=== PATIENT | male | born 1935 | race Caucasian/White ===

== ENCOUNTER 2017-05-29 14:47 | Emergency (ER) | payer OTHER ==
[~2017-05-29] VITALS: Ht 172.7 cm; Wt 66.0 kg
[2017-05-29 14:49] VITALS: BP 161/73; PULSE 85; RESP 18; TEMP 98.3; O2SAT 97
[2017-05-29 15:53] LABS: AUTOMATED NEUTROPHIL # 6.7 TH/MM3 (1.8-7.7); BASOPHIL % 0.4 % (0.0-2.0); EOSINOPHIL # 0.1 TH/MM3 (0-0.4); HEMATOCRIT 41.4 % (39.0-51.0); HEMOGLOBIN 14.1 GM/DL (13.0-17.0); LYMPH % 18.3 % (9.0-44.0); LYMPHOCYTE # 1.7 TH/MM3 (1.0-4.8); MEAN CORPUSCULAR HEMOGLOBIN 31.3 PG (27.0-34.0); MEAN PLATELET VOLUME 8.5 FL (7.0-11.0); MONO % 9.8 % (0.0-8.0); MONOCYTE # 0.9 TH/MM3 (0-0.9); NEUT % 70.5 % (16.0-70.0); PLATELET COUNT 419 TH/MM3 (150-450); RED CELL DISTRIBUTION WIDTH 12.8 % (11.6-17.2); WHITE BLOOD COUNT 9.5 TH/MM3 (4.0-11.0)
[2017-05-29 16:14] LABS: ALBUMIN 3.6 GM/DL (3.4-5.0); ALT (GPT) 18 U/L (12-78); AST (GOT) 15 U/L (15-37); BICARBONATE 26.1 MEQ/L (21.0-32.0); BLOOD UREA NITROGEN 26 MG/DL (7-18); CALCIUM 9.4 MG/DL (8.5-10.1); CHLORIDE 103 MEQ/L (98-107); CREATININE 1.27 MG/DL (0.60-1.30); GLOMERULAR FILTRATION RATE 55 ML/MIN (>89); GLUCOSE,RANDOM 105 MG/DL (74-106); SODIUM (NA) 139 MEQ/L (136-145)
[2017-05-29 16:17] LABS: ALKALINE PHOSPHATASE 102 U/L (45-117); TOTAL BILIRUBIN ADULT 0.7 MG/DL (0.2-1.0); TOTAL PROTEIN 8.5 GM/DL (6.4-8.2)
[2017-05-29] MEDS ORDERED: HYDR12.57 PO (16:56)
[2017-05-29] MEDS ORDERED: ATEN25TA PO (16:56)
[2017-05-29] MEDS ORDERED: ALLO100T PO (16:58)
--- NOTE | 2017-05-29 17:12 | PD ---
HPI Chief Complaint: [employer] Problem Time Seen by Provider: 16:28 Travel History International Travel<30 days: No Contact w/Intl Traveler<30days: No Traveled to known affect area: No History of Present Illness HPI 81-year-old male complains of drainage from the surgical wound on the abdomen. Patient has history of diverticulitis with bowel perforation. Patient status post bowel surgery with colostomy in [place] a month ago. Patient states that he has serosanguineous drainage from the surgical wound for the past 3 weeks. Patient denies any fever chills. Patient denies abdominal pain. Patient states that the ostomy has been draining well. Patient has appointment with surgeon tomorrow in [place]. PFSH Past Medical History Cardiovascular Problems: Yes Diverticulitis: Yes Hiatal Hernia: Yes Hypertension: Yes Past Surgical History Other Surgery: Yes (hernia sx, ostomy) Social History Alcohol Use: No Tobacco Use: No Substance Use: No Allergies-Medications (Allergen,Severity, Reaction): Coded Allergies: pollen extracts (Verified Adverse Reaction, Mild, Sneezing, 05/29/17) Reported Meds & Prescriptions Reported Meds & Active Scripts Active Doxycycline Hyclate 100 Mg Cap 100 Mg PO BID Cipro (Ciprofloxacin HCl) 500 Mg Tab 500 Mg PO BID Reported Allopurinol 100 Mg Tab 100 Mg PO DAILY Hydrochlorothiazide 12.5 Mg Cap 12.5 Mg PO DAILY Atenolol 25 Mg Tab 12.5 Mg PO DAILY Review of Systems General / Constitutional: No: Fever Eyes: No: Visual changes HENT: No: Headaches Cardiovascular: No: Chest Pain or Discomfort Respiratory: No: Shortness of Breath Gastrointestinal: No: Abdominal Pain Genitourinary: No: Dysuria Musculoskeletal: No: Pain Skin: No Rash Neurologic: No: Weakness Psychiatric: No: Depression Endocrine: No: Polydipsia Hematologic/Lymphatic: No: Easy Bruising Physical Exam Narrative GENERAL: Well-nourished, well-developed patient. SKIN: Focused skin assessment warm/dry. HEAD: Normocephalic. EYES: No scleral icterus. No injection or drainage. NECK: Supple, trachea midline. No JVD or lymphadenopathy. CARDIOVASCULAR: Regular rate and rhythm without murmurs, gallops, or rubs. RESPIRATORY: Breath sounds equal bilaterally. No accessory muscle use. GASTROINTESTINAL: Abdomen soft, non-tender, nondistended. MUSCULOSKELETAL: No cyanosis, or edema. BACK: Nontender without obvious deformity. No CVA tenderness. Examination of the surgical wound on the left side of the abdomen shows emanuel in place. The wound edges redness with pussy discharge. Ostomy in place and draining well. Data Data Last Documented VS Vital Signs Date Time Temp Pulse Resp B/P (MAP) Pulse Ox O2 Delivery O2 Flow Rate FiO2 05/29/17 14:49 98.3 85 18 161/73 (102) 97 Orders Orders Complete Blood Count With Diff (05/29/17 15:02) Comprehensive Metabolic Panel (05/29/17 15:02) Lactic Acid Sepsis Protocol (05/29/17 15:02) Blood Culture (05/29/17 15:02) Wound Culture And Gram Stain (05/29/17 17:00) Ciprofloxacin (Cipro) (05/29/17 17:15) Doxycycline (Vibramycin) (05/29/17 17:15) Ed Discharge Order (05/29/17 17:25) Labs Laboratory Tests Test 05/29/17 15:10 05/29/17 15:16 White Blood Count 9.5 TH/MM3 Red Blood Count 4.50 MIL/MM3 Hemoglobin 14.1 GM/DL Hematocrit 41.4 % Mean Corpuscular Volume 92.0 FL Mean Corpuscular Hemoglobin 31.3 PG Mean Corpuscular Hemoglobin Concent 34.0 % Red Cell Distribution Width 12.8 % Platelet Count 419 TH/MM3 Mean Platelet Volume 8.5 FL Neutrophils (%) (Auto) 70.5 % Lymphocytes (%) (Auto) 18.3 % Monocytes (%) (Auto) 9.8 % Eosinophils (%) (Auto) 1.0 % Basophils (%) (Auto) 0.4 % Neutrophils # (Auto) 6.7 TH/MM3 Lymphocytes # (Auto) 1.7 TH/MM3 Monocytes # (Auto) 0.9 TH/MM3 Eosinophils # (Auto) 0.1 TH/MM3 Basophils # (Auto) 0.0 TH/MM3 CBC Comment DIFF FINAL Differential Comment Blood Urea Nitrogen 26 MG/DL Creatinine 1.27 MG/DL Random Glucose 105 MG/DL Total Protein 8.5 GM/DL Albumin 3.6 GM/DL Calcium Level 9.4 MG/DL Alkaline Phosphatase 102 U/L Aspartate Amino Transf (AST/SGOT) 15 U/L Alanine Aminotransferase (ALT/SGPT) 18 U/L Total Bilirubin 0.7 MG/DL Sodium Level 139 MEQ/L Potassium Level 3.7 MEQ/L Chloride Level 103 MEQ/L Carbon Dioxide Level 26.1 MEQ/L Anion Gap 10 MEQ/L Estimat Glomerular Filtration Rate 55 ML/MIN Lactic Acid Level 1.2 mmol/L MDM Medical Decision Making Medical Screen Exam Complete: Yes Emergency Medical Condition: Yes Interpretation(s) CBC within normal limit. CMP within normal limit. Differential Diagnosis Differential diagnosis including cellulitis, abscess. Narrative Course 81-year-old male with surgical wound infection. Status post bowel surgery with colostomy in place. Wound culture obtained. Cipro 500 mg by mouth given. Doxycycline 100 mg by mouth given. Diagnosis Primary Impression: Surgical wound infection Qualified Codes: T81.4XXA - Infection following a procedure, initial encounter Patient Instructions: General Instructions Additional Instructions: Cipro and doxycycline as directed. Wound care daily. Follow-up with surgeon as scheduled in the a.m. Return if worse. Med/Other Pt SpecificInfo: Prescription(s) given Scripts Sulfamethoxazole-Trimethoprim (Bactrim DS) 800-160 Mg Tab 1 TAB PO BID for Infection, #20 TAB 0 Refills Prov: Wang Childs MD 05/29/17 Ciprofloxacin (Cipro) 500 Mg Tab 500 MG PO BID for Infection, #20 TAB 0 Refills Prov: Wang Childs MD 05/29/17 Disposition: 01 DISCHARGE HOME Condition: Stable Wang Childs MD May 29, 2017 17:12
[2017-05-29] MEDS ORDERED: DOXYCYCLINE HYCLATE 100 MG CAP PO ONE (17:15)
[2017-05-29] MEDS ORDERED: CIPROFLOXACIN 500 MG TAB PO ONE (17:15)
[2017-05-29] MEDS ORDERED: CIPR-9 PO (17:24)
[2017-05-29] MEDS ORDERED: DOXY100C PO (17:24)
[2017-05-29] MEDS ORDERED: BACT800T5 PO (17:44)
== END 2017-05-29 17:30 | disposition home or self-care (01) ==
LOC: NEPC 14:47
DX: T81.4XXA Infection following a procedure, initial encounter (principal); B96.20 Unspecified Escherichia coli [E. coli] as the cause of diseases classified elsewhere; I10 Essential (primary) hypertension
CPT/HCPCS: 80053; 83605; 85025; 87040; 87070; 87077; 87186; 87205; 99283

== ENCOUNTER 2017-06-21 08:26 | Inpatient (IN) | payer OTHER ==
[~2017-06-21] VITALS: Ht 172.7 cm; Wt 60.2 kg
[~2017-06-21 08:26] MED LIST: ALLO100T PO; ATEN25TA PO; BACT800T5 PO; CIPR-9 PO; HYDR12.57 PO
[2017-06-21 08:30] VITALS: BP 170/73; PULSE 74; RESP 16; TEMP 97.5; O2SAT 98
[2017-06-21] MEDS ORDERED: PIPERACIL-TAZO 3.375 GM PREMIX 50 ML IV ONE (09:00)
[2017-06-21 09:09] VITALS: O2SAT 97
[2017-06-21 09:12] VITALS: BP 144/65
[2017-06-21] MEDS: SODIUM CHLORIDE 0.9% FLUSH 10 ML FLUSH IV FLUSH PRN ×2 (09:22→11:44)
[2017-06-21 09:30] LABS: AUTOMATED NEUTROPHIL # 4.6 TH/MM3 (1.8-7.7); BASOPHIL % 0.7 % (0.0-2.0); EOSINOPHIL # 0.1 TH/MM3 (0-0.4); EOSINOPHIL % 2.2 % (0.0-4.0); HEMATOCRIT 36.2 % (39.0-51.0); HEMOGLOBIN 12.7 GM/DL (13.0-17.0); LYMPH % 16.9 % (9.0-44.0); LYMPHOCYTE # 1.1 TH/MM3 (1.0-4.8); MEAN CELL VOLUME 90.1 FL (80.0-100.0); MEAN CORPUSCULAR HEMOGLOBIN 31.5 PG (27.0-34.0); MEAN CORPUSCULAR HGB CONC 34.9 % (32.0-36.0); MEAN PLATELET VOLUME 7.3 FL (7.0-11.0); MONO % 8.5 % (0.0-8.0); MONOCYTE # 0.5 TH/MM3 (0-0.9); NEUT % 71.7 % (16.0-70.0); PLATELET COUNT 272 TH/MM3 (150-450); RED BLOOD COUNT 4.02 MIL/MM3 (4.50-5.90); RED CELL DISTRIBUTION WIDTH 13.7 % (11.6-17.2); WHITE BLOOD COUNT 6.4 TH/MM3 (4.0-11.0)
[2017-06-21 10:02] LABS: ALBUMIN 3.8 GM/DL (3.4-5.0); AST (GOT) 14 U/L (15-37); BICARBONATE 30.3 MEQ/L (21.0-32.0); BLOOD UREA NITROGEN 16 MG/DL (7-18); CALCIUM 9.2 MG/DL (8.5-10.1); CHLORIDE 103 MEQ/L (98-107); CREATININE 1.04 MG/DL (0.60-1.30); GLOMERULAR FILTRATION RATE 69 ML/MIN (>89); GLUCOSE,RANDOM 100 MG/DL (74-106); SODIUM (NA) 139 MEQ/L (136-145)
[2017-06-21 10:03] LABS: ALT (GPT) 31 U/L (12-78)
[2017-06-21 10:05] LABS: ALKALINE PHOSPHATASE 75 U/L (45-117); TOTAL BILIRUBIN ADULT 0.7 MG/DL (0.2-1.0); TOTAL PROTEIN 7.6 GM/DL (6.4-8.2)
[2017-06-21] MEDS ORDERED: IOHEXOL 350 MG/ML 10 ML VIAL (for RAD DIAG) IVCONTRAST ONE (10:40)
--- NOTE | 2017-06-21 11:13 | RADRPT ---
EXAM DATE/TIME: 06/21/2017 10:31 [facility] COMPARISON: No previous studies available for comparison. INDICATIONS : Pain around mid abdomen ostomy site. IV CONTRAST: 90 cc Omnipaque 350 (iohexol) IV ORAL CONTRAST: No oral contrast ingested. RADIATION DOSE: 5.25 CTDIvol (mGy) MEDICAL HISTORY : Hypertension. Hernia, hiatal. SURGICAL HISTORY : Ostomy ENCOUNTER: Initial ACUITY: 1 week PAIN SCALE: 4/10 LOCATION: buttock TECHNIQUE: Volumetric scanning of the abdomen and pelvis was performed. Using automated exposure control and ad justment of the mA and/or kV according to patient size, radiation dose was kept as low as reasonably achievable to obtain optimal diagnostic quality images. DICOM format image data is available electro nically for review and comparison. FINDINGS: LOWER CHEST: There is mild increased density the posterior lung bases bilaterally likely related to atelectasis. C oronary artery calcifications are seen. LIVER: There is a 1.2 cm hypodensity seen at the inferior aspect of the right lobe of the liver. There is al so a 1 cm hypodensity seen in the inferior aspect of the right lobe liver as seen on the coronal imag es. These are nonspecific. The gallbladder is contracted. SPLEEN: Normal size without lesion. PANCREAS: Within normal limits. KIDNEYS: There is cortical thinning at the superior aspect of the left kidney. There is a 1.7 cm cyst seen at the mid left kidney. ADRENAL GLANDS: Within normal limits. VASCULAR: There are atherosclerotic calcifications seen throughout the arcuate system. BOWEL/MESENTERY: There is a colostomy in the left lower quadrant with the proximal sigmoid colon extending into the co lostomy site. It appears the distal sigmoid colon and rectum are present and are filled with dense co ntrast. ABDOMINAL WALL: There is postoperative change with some fluid density seen in the subcutaneous midline just deep to m idline skin emanuel. The fluid density extends over a 6 cm length and measures approximately 1.4 cm i n transverse dimension 1.8 cm in AP dimension. RETROPERITONEUM: There is no lymphadenopathy. BLADDER: No wall thickening or mass. REPRODUCTIVE: The prostate is enlarged. INGUINAL: There is no lymphadenopathy or hernia. MUSCULOSKELETAL: There is degenerative change in the lower lumbar spine. CONCLUSION: 1. Status post midline incision with fluid seen in the subcutaneous fat. This could be a postoperativ e seroma. Abscess cannot be excluded. 2. Status post resection of portion of the sigmoid colon with a left colostomy. 3. Nonspecific 1.2 cm and 1.0 cm hepatic lesions. These could represent small cysts or hemangiomas. O ther etiologies cannot be excluded. 4. Cortical thinning of the upper left kidney. 5. Atherosclerotic calcifications. 6. Prostatic enlargement. Tez Lugo MD on June 21, 2017 at 11:02 Board Certified Radiologist. This report was verified electronically.
--- NOTE | 2017-06-21 11:28 | PD ---
HPI Chief Complaint: Wound/Suture/Staple Re-Check Time Seen by Provider: 08:52 Travel History International Travel<30 days: No Contact w/Intl Traveler<30days: No Traveled to known affect area: No History of Present Illness HPI Patient is a 81 year old male who comes in due to oozing from his surgical wound. He has an ostomy performed in early April and was here May 29 for a likely surgical site infection. He says he took the prescribed antibiotics, but it is still producing a lot of pus. He has a home health nurse who comes to check non him and she believes he has an infection. He says the ostomy is functioning well. He denies any pain to the site. He denies fever or chills. Severity is moderate. PFSH Past Medical History Hx Anticoagulant Therapy: No Cardiovascular Problems: No Chemotherapy: No Cerebrovascular Accident: No Diabetes: No Diverticulitis: Yes Hiatal Hernia: Yes Hypertension: Yes Respiratory: No Past Surgical History Other Surgery: Yes (hernia sx, ostomy) Social History Alcohol Use: No Tobacco Use: No Substance Use: No Allergies-Medications (Allergen,Severity, Reaction): Coded Allergies: pollen extracts (Verified Adverse Reaction, Mild, Sneezing, 05/29/17) Reported Meds & Prescriptions Reported Meds & Active Scripts Active Lisinopril 20 Mg Tab 20 Mg PO BID Bactrim DS (Sulfamethoxazole-Trimethoprim) 800-160 Mg Tab 1 Tab PO BID Cipro (Ciprofloxacin HCl) 500 Mg Tab 500 Mg PO BID Reported Atorvastatin (Atorvastatin Calcium) 20 Mg Tab 20 Mg PO HS Atenolol 50 Mg Tab 50 Mg PO DAILY Allopurinol 100 Mg Tab 100 Mg PO DAILY Hydrochlorothiazide 12.5 Mg Cap 12.5 Mg PO DAILY Review of Systems Except as stated in HPI: all other systems reviewed are Neg General / Constitutional: No: Fever, Chills HENT: No: Headaches, Lightheadedness Cardiovascular: No: Chest Pain or Discomfort Respiratory: No: Shortness of Breath Gastrointestinal: No: Nausea, Vomiting, Abdominal Pain Skin: Positive Other (pus from wound) Neurologic: No: Weakness, Dizziness Physical Exam Narrative GENERAL: Awake and alert, in no acute distress. SKIN: Surgical wound to the abdomen leaking a large amount of greenish pus. No surrounding erythema. HEAD: Atraumatic. Normocephalic. EYES: Pupils equal and round. No scleral icterus. ENT: Mucous membranes pink and moist. NECK: Trachea midline. No JVD. CARDIOVASCULAR: Regular rate and rhythm. No murmur appreciated. RESPIRATORY: No accessory muscle use. Clear to auscultation. Breath sounds equal bilaterally. GASTROINTESTINAL: Abdomen soft, non-tender, nondistended. MUSCULOSKELETAL: No obvious deformities. No clubbing. No cyanosis. No edema. NEUROLOGICAL: Awake and alert. No obvious cranial nerve deficits. Motor grossly within normal limits. Normal speech. PSYCHIATRIC: Appropriate mood and affect; insight and judgment normal. Data Data Last Documented VS Vital Signs Date Time Temp Pulse Resp B/P (MAP) Pulse Ox O2 Delivery O2 Flow Rate FiO2 06/21/17 09:12 144/65 (91) 06/21/17 09:09 97 Room Air 06/21/17 08:30 97.5 74 16 Orders Orders Complete Blood Count With Diff (06/21/17 08:58) Comprehensive Metabolic Panel (06/21/17 08:58) Ct Abd/Pel W Iv Contrast(Rout) (06/21/17 08:58) Iv Access Insert/Monitor (06/21/17 08:58) Ecg Monitoring (06/21/17 08:58) Oximetry (06/21/17 08:58) Sodium Chloride 0.9% Flush (Ns Flush) (06/21/17 09:00) Piperacil-Tazo 3.375 Gm Premix (Zosyn 3. (06/21/17 09:00) Wound Culture And Gram Stain (06/21/17 09:13) Iohexol 350 Inj (Omnipaque 350 Inj) (06/21/17 10:40) Admit Order (Ed Use Only) (06/21/17 ) Labs Laboratory Tests Test 06/21/17 09:09 06/21/17 09:10 White Blood Count 6.4 TH/MM3 Red Blood Count 4.02 MIL/MM3 Hemoglobin 12.7 GM/DL Hematocrit 36.2 % Mean Corpuscular Volume 90.1 FL Mean Corpuscular Hemoglobin 31.5 PG Mean Corpuscular Hemoglobin Concent 34.9 % Red Cell Distribution Width 13.7 % Platelet Count 272 TH/MM3 Mean Platelet Volume 7.3 FL Neutrophils (%) (Auto) 71.7 % Lymphocytes (%) (Auto) 16.9 % Monocytes (%) (Auto) 8.5 % Eosinophils (%) (Auto) 2.2 % Basophils (%) (Auto) 0.7 % Neutrophils # (Auto) 4.6 TH/MM3 Lymphocytes # (Auto) 1.1 TH/MM3 Monocytes # (Auto) 0.5 TH/MM3 Eosinophils # (Auto) 0.1 TH/MM3 Basophils # (Auto) 0.0 TH/MM3 CBC Comment DIFF FINAL Differential Comment Blood Urea Nitrogen 16 MG/DL Creatinine 1.04 MG/DL Random Glucose 100 MG/DL Total Protein 7.6 GM/DL Albumin 3.8 GM/DL Calcium Level 9.2 MG/DL Alkaline Phosphatase 75 U/L Aspartate Amino Transf (AST/SGOT) 14 U/L Alanine Aminotransferase (ALT/SGPT) 31 U/L Total Bilirubin 0.7 MG/DL Sodium Level 139 MEQ/L Potassium Level 3.6 MEQ/L Chloride Level 103 MEQ/L Carbon Dioxide Level 30.3 MEQ/L Anion Gap 6 MEQ/L Estimat Glomerular Filtration Rate 69 ML/MIN [facility] Medical Decision Making Medical Screen Exam Complete: Yes Emergency Medical Condition: Yes Medical Record Reviewed: Yes Differential Diagnosis surgical wound infection vs cellulitis vs abscess Narrative Course Patient is a 81 year old male who comes in because he is concerned his surgical wound is infected. Exam shows a large amount of pus coming from his abdominal wound. Repeat culture sent. IV established, labs sent. Labs show no acute abnormalities. CT abd/pelvis performed shows possible abscess. Given Zosyn based on previous sensitivities. Will be admitted for further management. Diagnosis Primary Impression: Wound, surgical, infected Qualified Codes: T81.4XXD - Infection following a procedure, subsequent encounter Additional Impression: Abdominal wall abscess Admitting Information Admitting Physician Requests: Admit Scripts Lisinopril (Lisinopril) 20 Mg Tab 20 MG PO BID, #30 TAB 0 Refills Prov: Giancarlo Lobo MD 06/21/17 Angely Ramirez MD Jun 21, 2017 11:28
--- NOTE | 2017-06-21 11:34 | HHI.HP ---
[facility] Service Family Medicine Primary Care Physician Janeth [facility] Admission Diagnosis surgical wound infections, abdominal wall abscess Diagnoses: International Travel<30 Days: No Contact w/Intl Traveler<30days: No Known Affected Area: No History of Present Illness Patient is a 81-year-old male past medical history of hypertension, high cholesterol, diverticulitis s/p ostomy placement 2016 at a [place] [facility] in [place]. Patient stated he had the ostomy placed in April due to diverticulitis and bowel perforation with possibility of reversal. Reports that a first week after surgery the incision began leaking creamy fluid. He has a home nurse service that comes twice a week to check on his incision. In early May he was seen by Dr. solis after the nursing service advised to come to the emergency room due to possible wound infection. At that time he was given 2 antibiotics (cipro and sulfa antibiotic) and completed a course for 10 days. However patient stated that the pus like drainage from the incision site worsen since completing course of antibiotics. Today after being seen by the snf service he was again advised to return to the emergency room for further evaluation of nonhealing surgical wound infection. Denies pain, fever, N/V, CP, SOB, chills, foul smell from drainage. Patient reports he has good ostomy output. Reports intermittent night sweats since surgery in Apr, 2017. Of note: He last saw the surgeon that completed the operation 2 weeks post op. Patient stated he has follow-up appointment with surgeon on July 08. In the ED patient was found to have a possible abscess vs seroma on abdomen/ pelvis CT. He was also given 1 dose of Zosyn, abx option based on prior wound culture (taken may 2017) results showing Escherichia coli sensitive to Zosyn . Review of Systems Constitutional: COMPLAINS OF: Night Sweats, DENIES: Diaphoretic episodes, Fever , Chills, Dizziness, Change in appetite Eyes: DENIES: Blurred vision, Vision loss Ears, nose, mouth, throat: DENIES: Throat pain, Running Nose Respiratory: DENIES: Cough, Wheezing, Shortness of breath Cardiovascular: DENIES: Chest pain, Palpitations, Syncope, Lower Extremity Edema Gastrointestinal: DENIES: Abdominal pain, Nausea, Vomiting Musculoskeletal: DENIES: Joint pain, Muscle aches Integumentary: DENIES: Rash Hematologic/lymphatic: DENIES: Bruising Neurologic: COMPLAINS OF: Paresthesias (chronic), DENIES: Headache Past Family Social History Past Medical History HTN high cholesterol produce too much uric- allopironol diverticulitis Past Surgical History ostomy, Theodore removal of kidney stone from bladder, >15 yrs ago Reported Medications Current Medications Medications (Trade) Dose Ordered Sig/Davis Route Start Time Stop Time Status Last Admin (NS Flush) 2 ml UNSCH PRN IV FLUSH 06/21/17 09:00 06/21/17 09:22 Allergies: Coded Allergies: pollen extracts (Verified Adverse Reaction, Mild, Sneezing, 05/29/17) Family History mother, brother and sister- HTN Social History -lives in [place] with his cousin -denies smoking and illicit drug use -alcohol occasionally Physical Exam Vital Signs Vital Signs Date Time Temp Pulse Resp B/P (MAP) Pulse Ox O2 Delivery O2 Flow Rate FiO2 06/21/17 09:12 144/65 (91) 06/21/17 09:09 97 Room Air 06/21/17 08:30 97.5 74 16 170/73 (105) 98 Room Air Physical Exam GENERAL: This is a well-nourished, well-developed patient, in no apparent distress. SKIN: No rashes, ecchymoses or lesions. Cool and dry. HEAD: Atraumatic. Normocephalic. No temporal or scalp tenderness. EYES: Pupils equal round and reactive. Extraocular motions intact. No scleral icterus. No injection or drainage. ENT: Nose without bleeding, purulent drainage or septal hematoma. Throat without erythema, tonsillar hypertrophy or exudate. Uvula midline. Airway patent. NECK: Trachea midline. No JVD or lymphadenopathy. Supple, nontender, no meningeal signs. CARDIOVASCULAR: Normal s1 and S2. Regular rate and rhythm without murmurs, gallops, or rubs. RESPIRATORY: Clear to auscultation. Breath sounds equal bilaterally. No wheezes , rales, or rhonchi. GASTROINTESTINAL: Abdomen soft, non-tender, nondistended. No hepato-splenomegaly , or palpable masses. No guarding. Positive BS. Ostomy in place left mid quadrant. Incision with several stables in place, closed, draining purulent pus. No erythema and no pain upon palpation MUSCULOSKELETAL: Extremities without clubbing, cyanosis, or edema. No joint tenderness, effusion, or edema noted. No calf tenderness. Negative Homans sign bilaterally. +2 DP NEUROLOGICAL: Awake and alert. Cranial nerves II through XII intact. Motor and sensory grossly within normal limits. Five out of 5 muscle strength in all muscle groups. Normal speech. Laboratory Laboratory Tests Test 06/21/17 09:09 06/21/17 09:10 White Blood Count 6.4 Red Blood Count 4.02 Hemoglobin 12.7 Hematocrit 36.2 Mean Corpuscular Volume 90.1 Mean Corpuscular Hemoglobin 31.5 Mean Corpuscular Hemoglobin Concent 34.9 Red Cell Distribution Width 13.7 Platelet Count 272 Mean Platelet Volume 7.3 Neutrophils (%) (Auto) 71.7 Lymphocytes (%) (Auto) 16.9 Monocytes (%) (Auto) 8.5 Eosinophils (%) (Auto) 2.2 Basophils (%) (Auto) 0.7 Neutrophils # (Auto) 4.6 Lymphocytes # (Auto) 1.1 Monocytes # (Auto) 0.5 Eosinophils # (Auto) 0.1 Basophils # (Auto) 0.0 CBC Comment DIFF FINAL Differential Comment Blood Urea Nitrogen 16 Creatinine 1.04 Random Glucose 100 Total Protein 7.6 Albumin 3.8 Calcium Level 9.2 Alkaline Phosphatase 75 Aspartate Amino Transf (AST/SGOT) 14 Alanine Aminotransferase (ALT/SGPT) 31 Total Bilirubin 0.7 Sodium Level 139 Potassium Level 3.6 Chloride Level 103 Carbon Dioxide Level 30.3 Anion Gap 6 Estimat Glomerular Filtration Rate 69 Date/Time Source Procedure Growth Status 06/21/17 09:10 Wound Abdomen Gram Stain Pending Received 06/21/17 09:10 Wound Abdomen Wound Culture Pending Received Result Diagram: 06/21/17 0909 06/21/17 0910 Imaging Last Impressions Abdomen/Pelvis CT 06/21/17 0858 Signed Impressions: Service Date/Time: Wednesday, June 21, 2017 10:31 - CONCLUSION: 1. Status post midline incision with fluid seen in the subcutaneous fat. This could be a postoperative seroma. Abscess cannot be excluded. 2. Status post resection of portion of the sigmoid colon with a left colostomy. 3. Nonspecific 1.2 cm and 1.0 cm hepatic lesions. These could represent small cysts or hemangiomas. Other etiologies cannot be excluded. 4. Cortical thinning of the upper left kidney. 5. Atherosclerotic calcifications. 6. Prostatic enlargement. Tez Lugo MD Caprini VTE Risk Assessment Caprini VTE Risk Assessment: Mod/High Risk (score >= 2) VTE Pharm Contraindication: Caprini Risk Assessment Model Point Value = 1 Point Value = 2 Point Value = 3 Point Value = 5 Age 41-60 Minor surgery BMI > 25 kg/m2 Swollen legs Varicose veins or History of unexplained or recurrent spontaneous Oral contraceptives or hormone replacement Sepsis (< 1 month) Serious lung disease, including pneumonia (< 1 month) Abnormal pulmonary function Acute myocardial infarction Congestive heart failure (< 1 month) History of inflammatory bowel disease Medical patient at bed rest Age 61-74 Arthroscopic surgery Major open surgery (> 45 min) Laparoscopic surgery (> 45 min) Malignancy Confined to bed (> 72 hours) Immobilizing plaster cast Central venous access Age >= 75 History of VTE Family history of VTE Factor V Leiden Prothrombin [id number] Lupus anticoagulant Anticardiolipin antibodies Elevated serum homocysteine Heparin-induced thrombocytopenia Other congenital or acquired thrombophilia Stroke (< 1 month) Elective arthroplasty Hip, pelvis, or leg fracture Acute spinal cord injury (< 1 month) Prophylaxis Regimen Total Risk Factor Score Risk Level Prophylaxis Regimen 0-1 Low Early ambulation 2 Moderate Order ONE of the following: *Sequential Compression Device (SCD) *Heparin 5000 units SQ BID 3-4 Higher Order ONE of the following medications: *Heparin 5000 units SQ TID *Enoxaparin/Lovenox 40 mg SQ daily (WT < 150 kg, CrCl > 30 mL/min) *Enoxaparin/Lovenox 30 mg SQ daily (WT < 150 kg, CrCl > 10-29 mL/min) *Enoxaparin/Lovenox 30 mg SQ BID (WT < 150 kg, CrCl > 30 mL/min) AND/OR *Sequential Compression Device (SCD) 5 or more Highest Order ONE of the following medications: *Heparin 5000 units SQ TID (Preferred with Epidurals) *Enoxaparin/Lovenox 40 mg SQ daily (WT < 150 kg, CrCl > 30 mL/min) *Enoxaparin/Lovenox 30 mg SQ daily (WT < 150 kg, CrCl > 10-29 mL/min) *Enoxaparin/Lovenox 30 mg SQ BID (WT < 150 kg, CrCl > 30 mL/min) AND *Sequential Compression Device (SCD) Assessment and Plan Assessment and Plan Patient is a 81-year-old male past medical history of hypertension, high cholesterol, diverticulitis s/p ostomy placement 2016 at a [place] [facility] in [place]. Patient admitted for treatment of non-healing surgical wound. Pt otherwise asymptomatic, stable, non-toxic appearing, VS WNL, no leukocytosis. Code Status Full code Discussed Condition With SWD Dr. Lobo WdW Dr. Good Problem List: (1) Wound, surgical, infected ICD Codes: T81.4XXA - Infection following a procedure, initial encounter Status: Acute Plan: Patient s/p resection of portion of sigmoid with left ileostomy placed on May 07, 2017 after diagnosis of diverticulitis and perforated bowel. Surgery was done at [facility] in [place]. He last saw the surgeon that completed the operation 2 weeks post op. Patient stated he has follow-up appointment with surgeon on July 08. CT abd/pelvis: Fluid seen in the subcutaneous fat. Postop seroma versus abscess. Blood pressure slightly elevated, other vital signs and blood work WNL -c/w zosyn while in hospital -IR consult cancelled, spoke with Dr. Denny, based on findings on CT abdomen and pelvis patient is not a candidate for IR procedure as abscess appears to be small and superficial. Patient may benefit from wound packing. -General surgery consult placed, appreciate recommendations -f/u am labs, wound and blood cx (2) Hypertension ICD Codes: I10 - Essential (primary) hypertension Status: Chronic Plan: -Elevated BP 140-170/60-70s -will continue to monitor and adjust medication if indicated -c/w home medication (lisinopril 20mg BID, atenolol 50 QD and HCTZ 12.5mg QD) -Pt stated he took morning dose of BP medications (3) High cholesterol ICD Codes: E78.00 - Pure hypercholesterolemia, unspecified Status: Chronic Plan: -c/w with atorvastatin medication (4) History of kidney stones ICD Codes: Z87.442 - Personal history of urinary calculi Status: Chronic Plan: c/w with home allopurinol medication (5) Nutrition, metabolism, and development symptoms ICD Codes: R63.8 - Other symptoms and signs concerning food and fluid intake Plan: Fluids: 105mls/hr Electrolytes: replete as needed Nutrition: NPO pending anticipatory surgery intervention DVT ppx: SCDs Problem Qualifiers (1) Wound, surgical, infected: Qualified Codes: T81.4XXD - Infection following a procedure, subsequent encounter Meagan Oneal MD, R1 Jun 21, 2017 11:34
[2017-06-21 12:00] VITALS: BP 144/66; PULSE 87
[2017-06-21] MEDS ORDERED: MAGNESIUM HYDROXIDE SUSP 30 ML CUP PO PRN (12:15)
[2017-06-21] MEDS ORDERED: SENNOSIDES 8.6 MG TAB PO PRN (12:15)
[2017-06-21] MEDS ORDERED: BISACODYL 10 MG SUPP RECTAL PRN (12:15)
[2017-06-21] MEDS ORDERED: SODIUM CHLORIDE 0.9% FLUSH 10 ML FLUSH IV FLUSH PRN (12:15)
[2017-06-21] MEDS ORDERED: LACTULOSE SYRUP 20 GM/30 ML CUP PO PRN (12:15)
[2017-06-21] MEDS ORDERED: NALOXONE HCL 0.4 MG/ML AMP IV PUSH PRN (12:15)
[2017-06-21] MEDS ORDERED: ONDANSETRON HCL 4 MG/2 ML VIAL IVP PRN (12:15)
[2017-06-21] MEDS ORDERED: ATEN50TA PO (12:18)
[2017-06-21] MEDS ORDERED: LISI-515 PO (12:18)
[2017-06-21] MEDS ORDERED: ACETAMINOPHEN 325 MG TAB PO PRN (12:30)
[2017-06-21] MEDS ORDERED: ATOR20TA15 PO (12:31)
[2017-06-21] MEDS ORDERED: SODIUM CHLOR 0.9% 1000 ML INJ 1,000 ML IV SCH (13:00)
[2017-06-21] MEDS ORDERED: PIPERACIL-TAZO 3.375 GM PREMIX 50 ML IV SCH (15:00)
[2017-06-21 16:02] VITALS: BP 163/78; PULSE 66; RESP 18; TEMP 98.3; O2SAT 99
--- NOTE | 2017-06-21 17:07 | PD.CONS ---
HPI Service General surgery Consult Requested By Family medicine residents Reason for Consult Wound infection Primary Care Physician [facility] History of Present Illness Is a very pleasant 81-year-old gentleman patient of the [place] who back in April was taken by shuttle to the [place] hospital for severe abdominal pain. He apparently was diagnosed with perforated diverticulitis and presumably underwent sigmoid colon resection with colostomy. He did follow up with his doctor surgeon Dr. APBLO NAVA which is my phonetic spelling of his name, where he says the surgeon told him that his wound looked pretty good took a few emanuel out and made a follow-up appointment. He says the pathology did not show cancer and that was the good news. He subsequently developed a large amount of purulent drainage from his wound and came to the ER where he saw in the ER physician who did a culture put him on antibiotics and ordered home health care for dressing changes. He has continued to have a large amount of purulent drainage from his midline wound and was instructed by his home health care nurses to return to the emergency department. He was seen today where recommendations were made for admission, IV antibiotics, and dressing changes. A surgical consultation was requested for wound management. The patient denies fevers and chills. He indicates his colostomy has been functioning well. He does indicate at one point that a narrow dressing was placed into a wound opening at the apex of his wound. His wound care has really been in adequate and some of that is on the patient because he really is was not willing to go the 85 miles back to the [place] in [place] for surgical follow-up and he did not have a surgeon here locally. Review of Systems Other Large amount of purulent drainage from midline wound Past Family Social History Past Medical History Hypertension high cholesterol and a uric acid associated bladder stone Past Surgical History Removal of the uric acid bladder stone many years ago. Reported Medications Lisinopril. Anticholesterol medication. Allergies: Coded Allergies: pollen extracts (Verified Adverse Reaction, Mild, Sneezing, 05/29/17) Active Ordered Medications Current Medications Medications (Trade) Dose Ordered Sig/Davis Route Start Time Stop Time Status Last Admin Sodium Chloride 1,000 ml @ 105 mls/hr Q9H32M IV 06/21/17 13:00 06/21/17 13:42 (NS Flush) 2 ml UNSCH PRN IV FLUSH 06/21/17 12:15 (NS Flush) 2 ml BID IV FLUSH 06/21/17 21:00 (Zofran Inj) 4 mg Q6H PRN IVP 06/21/17 12:15 (Narcan Inj) 0.4 mg UNSCH PRN IV PUSH 06/21/17 12:15 (Milk Of Magnesia Liq) 30 ml Q12H PRN PO 06/21/17 12:15 (Senokot) 17.2 mg Q12H PRN PO 06/21/17 12:15 (Dulcolax Supp) 10 mg DAILY PRN RECTAL 06/21/17 12:15 (Lactulose Liq) 30 ml DAILY PRN PO 06/21/17 12:15 (Zyloprim) 100 mg DAILY PO 06/22/17 09:00 (Microzide) 12.5 mg DAILY PO 06/22/17 09:00 (Tenormin) 50 mg DAILY PO 06/22/17 09:00 (Prinivil) 20 mg BID PO 06/21/17 21:00 (Tylenol) 650 mg Q4H PRN PO 06/21/17 12:30 (Lipitor) 20 mg HS PO 06/21/17 21:00 Piperacillin Sod/ Tazobactam Sod 50 ml @ 100 mls/hr Q6H IV 06/21/17 15:00 06/21/17 14:35 Social History He is a non-smoker. He rarely uses alcohol and has used none since his surgery in April. Physical Exam Vital Signs Vital Signs Date Time Temp Pulse Resp B/P (MAP) Pulse Ox O2 Delivery O2 Flow Rate FiO2 06/21/17 16:02 98.3 66 18 163/78 (106) 99 06/21/17 12:00 87 144/66 (92) 06/21/17 09:12 144/65 (91) 06/21/17 09:09 97 Room Air 06/21/17 08:30 97.5 74 16 170/73 (105) 98 Room Air Physical Exam He is a well-developed well-nourished older gentleman who was standing at his bedside at the time of my arrival. He is hard of hearing and his battery in his hearing aid has worn out. He is pleasant and cooperative with the exam. He wears corrective lenses for his vision. HEENT shows a normocephalic atraumatic head his pupils are 3-4 round and equally reactive to light and his sclerae are anicteric. His oropharynx is clear. He has multiple caps and bridges which are not removable. His oral mucosal membranes appear normal. There is no erythema in the posterior oropharynx. His neck is supple without adenopathy he has a midline trachea no jugular venous distention no lymphadenopathy and no carotid bruits. His lung sounds are clear and equal anteriorly bilaterally his heart sounds are regular without obvious murmur rub or gallop. His abdomen is soft and nondistended. He has a colostomy in the left mid abdomen just lateral to the midline with some soft brown stool. His midline incision had several emanuel still intact and there was obvious purulent drainage from the wound. Exploration with a cotton tip applicator demonstrated 2 separate cavities of the wound were purulent drainage was expressible through. These were cleansed with saline and normal saline wet-to- dry dressings were placed in the upper 1 about a quarter of a 4 x 4 in the lower 1 about a half of a 4 x 4. There was hypertrophic granulation tissue in the wound openings. 2 smaller wound openings with hypertrophic granulation tissue were present without significant pocket of pus beneath it. There is no surrounding erythema. He had normal bowel sounds. Genital and rectal exams were deferred. His extremities show no cyanosis clubbing or edema. He has equal bilateral radial pulses. He is awake and alert and oriented. Laboratory Laboratory Tests Test 06/21/17 09:09 06/21/17 09:10 White Blood Count 6.4 Red Blood Count 4.02 Hemoglobin 12.7 Hematocrit 36.2 Mean Corpuscular Volume 90.1 Mean Corpuscular Hemoglobin 31.5 Mean Corpuscular Hemoglobin Concent 34.9 Red Cell Distribution Width 13.7 Platelet Count 272 Mean Platelet Volume 7.3 Neutrophils (%) (Auto) 71.7 Lymphocytes (%) (Auto) 16.9 Monocytes (%) (Auto) 8.5 Eosinophils (%) (Auto) 2.2 Basophils (%) (Auto) 0.7 Neutrophils # (Auto) 4.6 Lymphocytes # (Auto) 1.1 Monocytes # (Auto) 0.5 Eosinophils # (Auto) 0.1 Basophils # (Auto) 0.0 CBC Comment DIFF FINAL Differential Comment Blood Urea Nitrogen 16 Creatinine 1.04 Random Glucose 100 Total Protein 7.6 Albumin 3.8 Calcium Level 9.2 Alkaline Phosphatase 75 Aspartate Amino Transf (AST/SGOT) 14 Alanine Aminotransferase (ALT/SGPT) 31 Total Bilirubin 0.7 Sodium Level 139 Potassium Level 3.6 Chloride Level 103 Carbon Dioxide Level 30.3 Anion Gap 6 Estimat Glomerular Filtration Rate 69 Date/Time Source Procedure Growth Status 06/21/17 09:10 Wound Abdomen Gram Stain Pending Received 06/21/17 09:10 Wound Abdomen Wound Culture Pending Received Result Diagram: 06/21/1790806/21/[address] abdomen and pelvis shows wound infection with wound abscess not completely drained. He has a left-sided colostomy. Assessment and Plan Assessment and Plan 81-year-old gentleman who is about 6 weeks out from exploratory surgery presumably with sigmoid resection and colostomy at the [facility] by Dr. Pablo. He is received in adequate postoperative care partly due to the distance between his home here in [facility] in the [facility]. He has been draining purulent drainage from a midline wound infection that has not been adequately cared for. I have recommended normal saline wet-to-dry dressing changes twice daily and continuation of oral antibiotics. I do not believe the patient requires inpatient hospitalization for the care of a wound infection that routinely is taking care of as an outpatient. I have discussed my impression with the patient as well as the resident buyer who admitted the patient. I have ordered a regular diet. I have ordered twice daily normal saline wet-to-dry dressing changes. I discussed with the resident buyer Dr. TOBY Han, and asked her to please make arrangements for discharge and home health care dressing changes as I have recommended. I am happy to see the patient as an outpatient in my office to follow his wound healing. It is likely the areas of hypertrophic granulation tissue would benefit from treatment with silver nitrate which I can do in my office. Man Mcginnis MD Jun 21, 2017 17:07
--- NOTE | 2017-06-21 18:30 | HHI.DCPOC ---
Discharge Care Plan Diagnosis: (1) Wound, surgical, infected (2) Hypertension (3) High cholesterol Goals to Promote Your Health * To prevent worsening of your condition and complications * To maintain your health at the optimal level Directions to Meet Your Goals Take your medications as prescribed Follow your dietary instruction Follow activity as directed Keep your appointments as scheduled Take your immunizations and boosters as scheduled If your symptoms worsen call your PCP, if no PCP go to Urgent Care Center or Emergency Room Smoking is Dangerous to Your Health. Avoid second hand smoke Call the 24-hour hour crisis hotline for domestic abuse at Giancarlo Lobo MD Jun 21, 2017 18:30
[2017-06-21] MEDS ORDERED: LEVA750T9 PO (18:37)
[2017-06-21] MEDS ORDERED: METR-1 PO (18:37)
[2017-06-21] MEDS ORDERED: ATORVASTATIN 20 MG TAB PO SCH (21:00)
[2017-06-21] MEDS ORDERED: SODIUM CHLORIDE 0.9% FLUSH 10 ML FLUSH IV FLUSH SCH (21:00)
[2017-06-21] MEDS ORDERED: LISINOPRIL 20 MG TAB PO SCH (21:00)
[2017-06-22] MEDS ORDERED: HYDROCHLOROTHIAZIDE 12.5 MG CAP PO SCH (09:00)
[2017-06-22] MEDS ORDERED: ATENOLOL 50 MG TAB PO SCH (09:00)
[2017-06-22] MEDS ORDERED: ALLOPURINOL 100 MG TAB PO SCH (09:00)
== END 2017-06-21 19:45 | disposition home or self-care (01) | DRG 863 ==
LOC: NEPC 08:26 → NEDA 11:29 → N07A 14:11
PROVIDERS: ADMIT Family Medicine; ATTEND Family Medicine
DX: T81.4XXA Infection following a procedure, initial encounter (principal); L02.211 Cutaneous abscess of abdominal wall; I10 Essential (primary) hypertension; E78.00 Pure hypercholesterolemia, unspecified; H91.90 Unspecified hearing loss, unspecified ear; Z93.3 Colostomy status
CPT/HCPCS: 74177; 80053; 85025; 86403; 87070; 87205; 96365; 96366; J2543; J7030; Q9967

== ENCOUNTER 2017-10-21 11:24 | Inpatient (IN) ==
[2017-10-26] MEDS ORDERED: Potassium Chlor 20 mEq Premix 20 MEQ/100 ML PIGGYBACK IV.SIG PRN (00:01)
[2017-10-26] MEDS ORDERED: KCL 20 mEq/NACL 0.45% Inj 1,000 ML IV.SIG SCH (00:01)
[2017-10-26] MEDS ORDERED: Bupivacaine PF 0.5% Inj 30 ML Vial NERV BLOCK SCH (00:01)
[2017-10-26] MEDS ORDERED: Potassium Chlor 40 mEq Premix 40 MEQ/100 ML PIGGYBACK IV.SIG PRN (00:01)
[2017-10-26] MEDS ORDERED: Acetaminophen 325 MG Tablet PO PRN (00:01)
[2017-10-26] MEDS ORDERED: Pantoprazole Inj 40 MG Vial IV.PUSH SCH (09:00)
[2017-10-26] MEDS ORDERED: Lisinopril 20 MG Tablet PO SCH (09:00)
[2017-10-26] MEDS ORDERED: Atenolol 50 MG Tablet PO SCH (09:00)
[2017-10-26] MEDS ORDERED: Allopurinol 100 MG Tablet PO SCH (09:00)
--- NOTE | 2017-10-26 11:50 | P.PN ---
Subjective Interval history: POD#4 s/p colostomy closure Agitated, wants to go home Physical Exam Vital signs: Vital Signs 10/26/17 02:40 10/26/17 08:00 Temperature 98.0 F 98.0 F Pulse Rate 88 87 Respiratory Rate 18 19 Blood Pressure 175/78 H 197/87 H Pulse Oximetry 96 97 Intake & Output 10/25/17 10/26/17 10/26/17 18:59 06:59 18:59 Output Total 280 / 280 Balance -280 / -280 Weight 68 kg Output: Urine 250 / 250 Wound Drainage Right Abdomen Other: # Voids 2 # Bowel Movements 1 Narrative: Pt agitated with many complaints Abdomen soft, nondistended, tender Wounds clean MARINE serosanguinous Results - Labs CBC & Chem 7: 10/24/17 06:31 10/23/17 05:15 Labs: Laboratory Results - last 24 hr 10/23/17 10/23/17 10/24/17 05:15 05:15 06:31 WBC 12.2 H 13.1 H RBC 4.05 L 4.04 L Hgb 12.6 L 12.9 L Hct 37.4 L 36.9 L MCV 92.2 91.4 MCH 31.1 31.9 MCHC 33.8 34.9 RDW 13.4 13.3 Plt Count 195 193 MPV 8.1 7.7 Neut % (Auto) 82.5 H 79.4 H Lymph % (Auto) 8.4 L 10.7 [place] % (Auto) 8.6 H 8.7 H Eos % (Auto) 0.2 0.9 Baso % (Auto) 0.3 0.3 Neut # (Auto) 10.1 H 10.4 H Lymph # (Auto) 1.0 1.4 [place] # (Auto) 1.1 H 1.1 H Eos # (Auto) 0.0 0.1 Baso # (Auto) 0.0 0.0 CBC Comment DIFF FINAL DIFF FINAL Sodium 146 H Potassium 4.0 Chloride 113 H Carbon Dioxide 23.2 Anion Gap 10 BUN 19 H Creatinine 1.13 Estimated GFR 62 L Random Glucose 124 H D Calcium 7.6 L Assessment and Plan - Plan Blood pressure high but worsening with agitation Dose Xanax Remove drain Home today
--- NOTE | 2017-11-27 06:24 | MD ---
cc: Roberto Carlos Bowling MD DATE OF DISCHARGE: 10/26/2017 REASON FOR ADMISSION: History of diverticulitis. PROCEDURES: On 10/23/2017, exploratory laparotomy with lysis of adhesions, segmental colon resection, low pelvic anastomosis and closure of colostomy, repair of abdominal wall hernias. DISCHARGE DIAGNOSIS: History of diverticulitis. HISTORY OF PRESENT ILLNESS: Mr. Salgado is an 82-year-old male who had been treated elsewhere in the [place] system earlier in the year for perforated diverticulitis. He underwent a resection with end colostomy and a Latrice pouch. The patient had a slow recovery, but has finally regained a lot of his strength and periambulatory activity. He was recently evaluated with colonoscopy and found to have no residual inflammation or other significant pathology of the colon. He was therefore admitted after an outpatient bowel prep for closure of his colostomy. HOSPITAL COURSE: Please see the admitting history and physical for complete past medical and surgical history. PERTINENT PHYSICAL: Very pleasant older male in no acute distress. Abdomen was soft and quite benign. Very little distention. No rebound or guarding or any masses noted. Incision is well healed. Colostomy was pink. Anal inspection revealed benign canal. Digital exam revealed some tenderness and tightness, but no masses. Very little stool. HOSPITAL COURSE: After admission, the patient was taken to the operating room on 10/23/2017, at which point he underwent an exploratory laparotomy with lysis of adhesions, segmental colon resection, low pelvic anastomosis, closure of his colostomy, and repair of multiple abdominal wall hernias. He did tolerate the procedure quite well. Initially, he was stabilized in the progressive care unit. His bowel function was somewhat slow to return and his diet was advanced accordingly. He did require some respiratory treatment for postoperative atelectasis and physical therapy for postoperative weakness. He continued to improve with fair amount of drainage from his abdominal drain. He was able to be weaned off his IV fluids, tolerated a regular diet and was considered ready for discharge home on 10/26/2017. DISCHARGE INSTRUCTIONS: The patient was discharged eating a regular diet. He was encouraged to ambulate daily, avoiding any heavy lifting or straining. All preop medications were to be resumed. The patient will be seen in 1 weeks' time for routine followup. Any problems prior to the scheduled office visit, he was encouraged to call for more urgent attention. Roberto Carlos Bowling MD AHR/sv/kd , 10:46 PM , 10:55 PM
== END 2017-10-26 14:34 | disposition home or self-care (01) ==
LOC: N07 11:24
PROVIDERS: ADMIT Colon & Rectal Surgery; ATTEND Colon & Rectal Surgery